=== PATIENT | female | born 1985 | race Caucasian/White ===

== ENCOUNTER 2017-10-10 22:46 | Emergency (ER) | payer OTHER ==
[2017-10-10] MEDS: diphenhydrAMINE HCL 25 MG CAPSULE PO (23:42)
[2017-10-10] MEDS: predniSONE 10 MG TABLET PO (23:42)
== END 2017-10-10 23:48 | disposition home or self-care (01) ==
LOC: ER 22:46
DX: T78.40XA Allergy, unspecified, initial encounter (principal); Z91.040 Latex allergy status
CPT/HCPCS: 99283; J7512; Q0163